=== PATIENT | male | born 1940 | race Caucasian/White ===

== ENCOUNTER → 2017-05-03 | Outpatient (CLI) | payer MEDICARE ==
[~2017-05-03] MED LIST: ADVAIR 250/5028 PUFF IN; ALBUTEROL-200 PUFFS/ IH; ALLERGY PILL OR; ASPIRIN 81MG TA81 MG PO; AUGMENTIN1 TA1 PO; CENTRUM SILVER1 TAB PO; HYDROMET OR; KEFLEX 500MG.500 MG PO; LEVAQUIN 750 M750 MG PO; LISINOPRIL 5MG T5 MG PO; MUCINEX600 MG PO; NORVASC 5MG. TAB5 MG PO; OMNICEF 300 MG300 MG PO; PRAVASTATIN 40M40 MG PO; PREDNISONE 20MG20 MG PO; PROAIR HFA0.09 MG/AC IH; SALMETEROL-F28 PUFFS IN; SYMBICORT1 AE1 IH; VENTOLIN H0.09 MG/AC IH; ZITHROMAX Z PA250 MG PO; ZOLPIDEM 10MG T10 MG PO
--- NOTE | 2017-05-03 16:09 | RADIOLOGY REPORT PS360 ---
CHEST(2 VIEWS-NOT PORTABLE) HISTORY: BRONCHITIS,COPD ORDERING PHYSICIAN: Gela BROWN PATIENT AGE: 76 years COMPARISON: 08/22/2015 FINDINGS: The cardiomediastinal silhouette and pulmonary vascularity are within normal limits. There is COPD with hyperinflation and attenuation of the peripheral pulmonary vessels with scattered areas of fibrosis with scattered pleural parenchymal opacities. There is chronic right apical pleural thickening. No lobar consolidation or collapse.. No acute bony abnormalities. IMPRESSION: COPD with chronic pleural and parenchymal scarring. No change with no acute finding
== END ==
LOC: RAD 15:18
DX: J20.9 Acute bronchitis, unspecified (principal); J44.0 Chronic obstructive pulmonary disease with (acute) lower respiratory infection

== ENCOUNTER → 2017-05-15 | Outpatient (CLI) | payer MEDICARE ==
--- NOTE | 2017-05-15 16:14 | RADIOLOGY REPORT PS360 ---
CHEST(2 VIEWS-NOT PORTABLE) Ordering Physician: Km Georges MD Patient Age: 76 years: Male HISTORY: ACUTE BRONCHITIS, COPD TECHNIQUE: PA and lateral chest COMPARISON :04/02/2013 CXR & more recent 05/03/2017 CXR FINDINGS Prominent apical pleural density is again seen and dates back to 2012. With slight progression over time a similar to last year with only perhaps incremental progression. However this is noted and warrants follow-up. The lateral film shows prominent linear scarring extending towards the right upper lung apex. The patchy density at the periphery the right midlung again most likely reflect scarring. Minimal density at the periphery the left midlung and left apex appear stable most likely reflecting scarring. The upper lung bryan are hyperexpanded reflecting COPD, emphysematous changes with slight coarsening markings towards lower lung bryan reflecting the same. Lateral film shows flattening of the diaphragm reflecting hyperexpansion COPD. The heart dominik and mediastinal structures otherwise unremarkable. Chest wall unremarkable. T-spine stable. IMPRESSION COPD. Hyperexpansio most of upper lung bryan n. Chronic changes. Linear scarring bilaterally extending towards upper lung bryan bilaterally. With this there is Biapical pleural &/parenchymal scarring which is most pronounced at right apex. Subtle progression of these features at right apex on PA film over time but favor they're more likely due to chronic changes and scarring... Low threshold for CT suggested this patient on the PA Minor densities at periphery the midlung bilaterally appear stable & related to scarring
== END ==
LOC: RAD 12:49
DX: J20.9 Acute bronchitis, unspecified (principal); J44.9 Chronic obstructive pulmonary disease, unspecified

== ENCOUNTER → 2017-05-25 | Outpatient (CLI) | payer MEDICARE ==
[2017-05-25 10:56] LABS: BUN 19 mg/dL (7-18)
[2017-05-25 10:59] LABS: GFR (ESTIMATED) 49 ML/MIN (>60)
--- NOTE | 2017-05-26 06:03 | RADIOLOGY REPORT PS360 ---
CT CHEST W/O CONTRAST HISTORY: ABNORMAL CXR, SOB, COPD ORDERING PHYSICIAN: Km Georges MD PATIENT AGE: 76 years TECHNIQUE: Axial images are obtained without contrast. Sagittal and coronal reformatted images are generated and reviewed. COMPARISON: 08/24/2012 FINDINGS: There is mild ectasia and tortuosity of the thoracic aorta. Coronary artery calcifications are present. Normal heart size. No pericardial thickening Centrilobular emphysematous changes are noted with chronic consolidation with air bronchograms in the right apex posteriorly similar to the previous exam with chronic narrowing of the right upper lobe bronchus and chronic collapse of the posterior segment of the right upper lobe. Similar when compared to the previous exam. There is new atelectatic/fibrotic change in the left upper lobe with thickening along the left major fissure. No obvious central obstructing lesion evident. No lobar consolidation. No effusions. Upper abdominal images show cholelithiasis. There are degenerative changes in the thoracic spine. IMPRESSION: 1. Centrilobular emphysematous changes. 2. Chronic collapse of the apical segment of the right upper lobe. 3. New atelectatic and/or fibrotic changes in the apical posterior segment of the left upper lobe. 4. No obvious central obstructing mass. 5. Cholelithiasis
== END ==
LOC: RAD 10:29
PROVIDERS: Family Medicine
DX: R06.02 Shortness of breath (principal); R93.8 Abnormal findings on diagnostic imaging of other specified body structures; J44.9 Chronic obstructive pulmonary disease, unspecified